=== PATIENT | male | born 1965 | race African-American/Black ===

== ENCOUNTER 2016-11-29 09:53 | Outpatient (CLI) | payer OTHER | END 2016-11-29 09:56 | disposition short-term general hospital (02) | LOC: AMB 09:53 | DX: M25.571 Pain in right ankle and joints of right foot (principal); M79.89 Other specified soft tissue disorders | CPT/HCPCS: A0425; A0427 ==

== ENCOUNTER 2016-11-29 09:56 | Emergency (ER) | payer OTHER ==
[~2016-11-29] VITALS: Ht 154.9 cm; Wt 59.0 kg
[2016-11-29 10:29] VITALS: TEMP 98
[2016-11-29 11:19] LABS: PLATELET COUNT 421 K/uL (142-355)
[2016-11-29 11:33] LABS: POTASSIUM 3.2 mmol/L (3.6-5.2); SODIUM 138 mmol/L (136-145)
[2016-11-29 12:50] VITALS: BP 102/80
== END 2016-11-29 12:54 | disposition home or self-care (01) ==
LOC: EDBD 09:56 → ED 09:56
DX: L03.115 Cellulitis of right lower limb (principal); R73.9 Hyperglycemia, unspecified; S80.11XA Contusion of right lower leg, initial encounter; S90.01XA Contusion of right ankle, initial encounter; V09.20XA Pedestrian injured in traffic accident involving unspecified motor vehicles, initial encounter; Y92.098 Other place in other non-institutional residence as the place of occurrence of the external cause
CPT/HCPCS: 36415; 80053; 80307; 81000; 85027; 99283; G0479